=== PATIENT | female | born 1970 | race Caucasian/White ===

== ENCOUNTER → 2020-08-12 | Day surgery (SDC) | payer OTHER ==
[~2020-08-12] MED LIST: BACLOFEN 10MG T10 MG PO; BIOCLEANSE PO; LIPITOR 10MG TA10 MG PO; MOBIC7.5 MG PO; PROBIOTIC1 EACH PO; TOPROL XL50 MG PO; ZESTORETIC 20-1 EAC1 PO; [UNRECOGNIZED DRUG - OTHER] PO; [UNRECOGNIZED DRUG - REMARK] PO
[2020-08-12 07:57] LABS: HCT 45.1 % (37.0-47.0); HGB 15.3 g/dl (12.5-16.0); MCH 31.5 pg (25.0-31.0); MCHC 33.9 g/dL (32.0-36.0); MCV 92.8 fL (78.0-100.0); MPV 9.6 fL (6.0-9.5); RBC 4.86 M/uL (4.20-5.40); RDW 12.8 % (11.5-14.0); WBC 8.8 K/uL (4.0-10.5)
[2020-08-12 08:19] LABS: ALBUMIN 3.9 g/dL (3.4-5.0); BILIRUBIN - TOTAL 0.8 mg/dL (0.2-1.0); BUN/CREAT RATIO (CALC) 28.3 RATIO; CREATININE 0.46 mg/dL (0.51-0.95); GLOBULIN (CALCULATION) 3.9 g/dL; POTASSIUM 3.6 mmol/L (3.5-5.1); TOTAL PROTEIN 7.8 g/dL (6.4-8.2)
== END | disposition home or self-care (01) ==
LOC: FAS 07:12
PROVIDERS: Surgery
DX: Z12.11 Encounter for screening for malignant neoplasm of colon (principal); K21.9 Gastro-esophageal reflux disease without esophagitis; E11.9 Type 2 diabetes mellitus without complications; F17.210 Nicotine dependence, cigarettes, uncomplicated; I10 Essential (primary) hypertension; Z79.1 Long term (current) use of non-steroidal anti-inflammatories (NSAID); Z79.899 Other long term (current) drug therapy; Z88.5 Allergy status to narcotic agent; Z88.8 Allergy status to other drugs, medicaments and biological substances; Z91.040 Latex allergy status; Z20.822 Contact with and (suspected) exposure to COVID-19
CPT/HCPCS: G0121; 36415; 80053; 83036; J2250; J7120; U0002

== ENCOUNTER 2022-01-09 10:30 | Emergency (ER) | payer OTHER ==
[2022-01-09 11:59] LABS: BASOPHIL 0.6 % (0-2); HCT 47.4 % (37.0-47.0); HGB 16.1 g/dl (12.5-16.0); LYMPHOCYTE 22.4 % (15-48); MCH 30.6 pg (25.0-31.0); MCV 90.1 fL (78.0-100.0); MONOCYTE 8.6 % (0-12); MPV 9.7 fL (6.0-9.5); NEUTROPHIL 65.7 % (41-80); NRBC 0; PLT 287 K/uL (150-400); RBC 5.26 M/uL (4.20-5.40); RDW 12.4 % (11.5-14.0); WBC 9.6 K/uL (4.0-10.5)
[2022-01-09 12:10] LABS: ALBUMIN 4.1 g/dL (3.4-5.0); BILIRUBIN - TOTAL 0.9 mg/dL (0.2-1.0); BUN/CREAT RATIO (CALC) 29.5 RATIO; CREATININE 0.61 mg/dL (0.51-0.95); GLOBULIN (CALCULATION) 3.6 g/dL; POTASSIUM 3.6 mmol/L (3.5-5.1); TOTAL PROTEIN 7.7 g/dL (6.4-8.2)
[2022-01-09 12:25] LABS: BILIRUBIN NEGATIVE (NEGATIVE); BLOOD 2+ Ery/uL (NEGATIVE); CLARITY CLEAR (CLEAR); COLOR YELLOW (YELLOW); GLUCOSE (U) NORMAL (NORMAL); LEUKOCYTES NEGATIVE Leu/uL (NEGATIVE); NITRITE NEGATIVE (NEGATIVE); PROTEIN NEGATIVE (NEGATIVE); SPECIFIC GRAVITY 1.025 (1.001-1.030); UROBILINOGEN 0.2 mg/dL (0.2-1.0); pH 6.5 (5.0-9.0)
[2022-01-09 12:38] LABS: BACTERIA 2+; URIC ACID CRYSTALS MODERATE
[2022-01-09 13:41] LABS: LACTIC ACID 0.6 mmol/L (0.4-1.9)
[2022-01-09] MEDS ORDERED: NORCO 5-325 TA1 EACH PO (13:42)
[2022-01-09] MEDS ORDERED: KETOROLAC TROME10 MG PO (13:42)
[2022-01-09] MEDS ORDERED: BACTRIM DS TAB1 EACH PO (13:42)
== END 2022-01-09 13:55 | disposition home or self-care (01) ==
LOC: FER 10:30
PROVIDERS: Emergency Medicine
DX: N30.11 Interstitial cystitis (chronic) with hematuria (principal); I10 Essential (primary) hypertension; F17.200 Nicotine dependence, unspecified, uncomplicated; Z88.5 Allergy status to narcotic agent; Z88.8 Allergy status to other drugs, medicaments and biological substances
CPT/HCPCS: 36415; 80053; 81001; 83605; 83690; 84145; 85025; 87040; 93005; J1170; J3010; Q9967